=== PATIENT | female | born 1955 | race Caucasian/White ===

== ENCOUNTER 2020-12-25 10:57 | Outpatient (REF) | payer MEDICARE, SELFPAY ==
[2020-12-25 11:55] LABS: MANUAL DIFF FLAG NO
[2020-12-25 12:11] LABS: Basophils Absolute Auto 0.1 X10*3/uL (0.0-0.2); Basophils Percent Auto 0.8 % (0-2); Eosinophils Absolute Auto 0.2 X10*3/uL (0.0-0.4); Eosinophils Percent Auto 3.5 % (0-4); Hemoglobin 13.6 g/dl (12.0-16.0); Imm Gran Abs Auto 0.01 X10*3/uL (0.00-0.03); Imm Gran Pct Auto 0.2 % (0.0-0.4); Lymphocytes Absolute Auto 1.9 X10*3/uL (1.2-4.9); Lymphocytes Percent Auto 31.8 % (20-40); Mean Corpuscular HGB Conc 32.4 g/dl (31.0-35.0); Mean Corpuscular Hemoglobin 31.9 pg (27.0-33.0); Mean Corpuscular Volume 98.4 fL (80-98); Mean Platelet Volume 9.9 fL (9.4-12.3); Monocytes Absolute Auto 0.4 X10*3/uL (0.1-1.2); Monocytes Percent Auto 6.3 % (2-11); Neutrophils Absolute Auto 3.5 X10*3/uL (2.0-8.3); Neutrophils Percent Auto 57.4 % (45-73); Platelet Count 240 X10*3/uL (160-400); Red Blood Count 4.27 X10*6/uL (4.20-5.50); Red Cell Distribution Width 12.3 % (11.0-16.0); White Blood Count 6.1 X10*3/uL (4.8-10.8)
[2020-12-25 12:16] LABS: Alanine Aminotransferase 47 U/L (0-31); Albumin Level 4.1 g/dL (3.5-5.0); Alkaline Phosphatase 91 U/L (39-117); Anion Gap 11 (12-20); Aspartate Amino Transferase 42 U/L (5-31); Bilirubin Total 0.7 mg/dL (0.0-1.0); Blood Urea Nitrogen 17 mg/dL (9-16); Calcium 9.4 mg/dL (8.4-10.2); Carbon Dioxide 28 mmol/L (22-29); Chloride 107 mmol/L (96-108); Cholesterol 200 mg/dL; Estimated Glomerular Filt Rate 53; Glucose Random 102 mg/dL (60-115); HDL Cholesterol 50 mg/dL; LDL Cholesterol Calculated 126 mg/dl; Potassium 5.2 mmol/L (3.3-5.1); Sodium 141 mmol/L (135-145); Total Protein 7.3 g/dL (6.5-8.0); Triglycerides 123 mg/dL
[2020-12-25 12:37] LABS: Vitamin D 25-OH Total 40.7 ng/mL (>30)
== END 2020-12-25 10:58 | disposition home or self-care (01) ==
LOC: HO.LAB 10:57
PROVIDERS: PCP Internal Medicine; Visit Provider Internal Medicine
DX: Z00.00 Encounter for general adult medical examination without abnormal findings (principal); E55.9 Vitamin D deficiency, unspecified
CPT/HCPCS: 36415; 80053; 80061; 82306; 85025

== ENCOUNTER 2021-04-19 09:00 | Day surgery (SDC) | payer MEDICARE, SELFPAY ==
[2021-04-16 09:55] VITALS: BMI 35.9
--- NOTE | 2021-04-16 10:02 | HO.ANESPROP2 ---
Documented by User: Shayy Vo NP 04/16/21 10:03 HPI - Anesthesia Eval Consult details Narrative: 65yo F for Upper Endoscopy with balloon dilation and Colonoscopy PMFSH Past Medical History Medical History COVID Depression Fatty liver GERD (gastroesophageal reflux disease) Internal hemorrhoids Sigmoid diverticulosis Surgical History Surgical History History of total abdominal hysterectomy Hx of colonoscopy Hx of esophagogastroduodenoscopy Social History Social History (Updated 04/19/21 @ 11:37 by Cata Salazar MD) Patient Tobacco Use Status: Current everyday Tobacco user Tobacco use type: Cigarette Cigarettes Per Day: 10 Smoked in Last 30 Days: Yes Use of substances other than those prescribed or required for medical reasons: No Are you DNR?: No Advance Directives: No Advance Directives Information Provided: Yes Meds Allergies Allergy/AdvReac Type Severity Reaction Status Date / Time No Known Allergies Allergy Verified 04/16/21 09:55 Exam Exam Date and Time: April 16, 2021 1002 Height,Weight and Vital Signs: Height 5 ft 3.5 in Weight 93.44 kg Pertinent Lab Results Pertinent Lab Results: Laboratory Tests 12/25/20 12/25/20 11:15 11:15 WBC 6.1 Hgb 13.6 Hct 42.0 Plt Count 240 Sodium 141 Potassium 5.2 H Chloride 107 Carbon Dioxide 28 BUN 17 H Creatinine 1.03 Assessment and Plan Assessment Anesthesia Assessment: Chart Reviewed Documented by User: Cata Salazar MD 04/19/21 11:39 PMFSH Past Medical History Medical History COVID Depression Fatty liver GERD (gastroesophageal reflux disease) Internal hemorrhoids Sigmoid diverticulosis Family History Family history of problems with anesthesia: No Surgical History Surgical History History of total abdominal hysterectomy Hx of colonoscopy Hx of esophagogastroduodenoscopy History of Problems with Anesthesia: No Social History Social History (Updated 04/19/21 @ 11:37 by Cata Salazar MD) Patient Tobacco Use Status: Current everyday Tobacco user Tobacco use type: Cigarette Cigarettes Per Day: 10 Smoked in Last 30 Days: Yes Use of substances other than those prescribed or required for medical reasons: No Are you DNR?: No Advance Directives: No Advance Directives Information Provided: Yes Meds Allergies Allergy/AdvReac Type Severity Reaction Status Date / Time No Known Allergies Allergy Verified 04/16/21 09:55 Exam Height,Weight and Vital Signs: Height 5 ft 3.5 in Weight 93.44 kg Vital Signs Temp Pulse Resp BP Pulse Ox 04/19/21 10:22 97.4 F 42 L 16 128/63 97 Pertinent Lab Results Pertinent Lab Results: Laboratory Tests 12/25/20 12/25/20 11:15 11:15 WBC 6.1 Hgb 13.6 Hct 42.0 Plt Count 240 Sodium 141 Potassium 5.2 H Chloride 107 Carbon Dioxide 28 BUN 17 H Creatinine 1.03 Airway Mallampati Class: II TM Dist: >3cm Neck ROM: Full Denture: Upper Heart: RRR Lungs: CTAB Assessment and Plan Assessment Anesthesia Assessment: Anesthesia Plan Discussed Final Anesthetic Review Family History of Problems with Anesthesia: No History of Problems with Anesthesia: No NPO: Yes ASA Class: III Final Preanesthetic Review: No Changes in Pt Med Stat, Meds/Allgs Chart Reviewed, Consent Obtained/Reviewed and Anes Risks/Benef Reviewed Patient Risk: Intermediate Procedure Risk: Low Assessment/Block/Sedation in SS: Assess/Block/Sedation-SS Anesthetic Plan Anesthetic Plan: MAC: Disposition: Standard PACU
[2021-04-19 10:22] VITALS: BP 128/63; PULSE 42; RESP 16; TEMP 36.3; O2SAT 97
[2021-04-19] MEDS: Lactated Ringers 1,000 ML 100 ML IVCONT (10:43)
[2021-04-19 12:20] VITALS: BP 111/64; PULSE 71; RESP 16; TEMP 36.2; O2SAT 98
--- NOTE | 2021-04-19 12:27 | PM.OP ---
Brief Operative Note Date of Service: 04/19/21 Pre-op diagnosis: Dysphagia, Screening Post-op diagnosis: other (Hiatal hernia, Gastric polyps, Colopn polyps) Procedure: EGD with Balloon dilation and biopsies, Colonoscopy to the cecum and TI with biopsies Surgeon: Manjinder Rogers Anesthesia: MAC Was an Director Of [employer] used for this Procedure?: No Estimated blood loss (mL): 4.0 Pathology: other (A. EG Junction at 34cm B. Gastric polyps. C. Esophagus at 25cm D. Ascending colon polyp E. Polyp at 50cm) Condition: stable Disposition: PACU
[2021-04-19 12:35] VITALS: BP 133/64; PULSE 74; RESP 17; TEMP 36.2; O2SAT 96
--- NOTE | 2021-04-19 12:58 | OP_ITS ---
SURGEON: Manjinder Rogers MD INDICATIONS: The patient presents for evaluation of dysphagia, gastroesophageal reflux, colorectal cancer screening and personal history of tubular adenoma of the colon. Full consent has been obtained from her for this, including risks of bleeding and perforation. PREOPERATIVE DIAGNOSIS: POSTOPERATIVE DIAGNOSIS: PROCEDURE PERFORMED: Esophagogastroduodenoscopy with balloon dilation of gastroesophageal junction and biopsies, and colonoscopy to cecum and terminal ileum with biopsy and removal of polyps. ESTIMATED BLOOD LOSS: COMPLICATIONS: ANESTHESIA: Monitored anesthesia care. ASSISTANTS: SPECIMENS: PREOPERATIVE DIAGNOSES: Dysphagia and colorectal cancer screening. POSTOPERATIVE DIAGNOSES: Dysphagia and colorectal cancer screening, hiatal hernia, gastric polyps, rule out eosinophilic esophagitis, colon polyps, diverticulosis. DESCRIPTION OF PROCEDURE: The patient was placed in the left lateral decubitus position. The Olympus video gastroscope was passed in the posterior oropharynx and upper esophagus under direct vision. The scope was passed slowly into the distal esophagus. The gastroesophageal junction appeared at 34 cm. This area appeared slightly irregular consistent with chronic reflux, but there was no evidence of any definitive Nash's esophagus. There was no ulceration, stricture, nor mass. The scope easily entered into the stomach. There was a small to moderate-sized hiatal hernia. The scope was advanced to the pylorus. The duodenum was cannulated to the descending portion. The duodenum including the bulb appeared normal without mass or ulceration. The scope was withdrawn back into the stomach. The gastric antrum and body appeared normal with good peristalsis. Scope was retroflexed visualizing the proximal stomach carefully, which appeared normal, without mass or ulceration, other than some hyperplastic appearing gastric polyps. Two of these were biopsied. The scope was straightened out and withdrawn back into the esophagus. Given her symptomatology, I did use a [employer] incremental balloon to dilate the gastroesophageal junction from 18 mm to 19 mm to 20 mm at the recommended pressures for between 30 and 60 seconds each. Post dilation, there was really no appreciable change nor heme. I did obtain some biopsies at the EG junction. Again, there was no sign of any narrowing or ulceration. The scope was withdrawn through the remainder of the esophagus, which appeared normal. I did obtain biopsies at 25 cm. There was no evidence of any proximal esophageal rings nor webs. The scope was withdrawn from the patient. She was turned around for colonoscopy. The digital rectal exam revealed no abnormalities. The Olympus video pediatric colonoscope was entered into the rectum and advanced easily to the cecum. Once in the cecum, I did identify normal-appearing cecal pouch with appendiceal orifice and a normal-appearing ileocecal valve. The terminal ileum was cannulated and appeared normal. The scope was withdrawn back in the colon. The entire cecum and ileocecal valve appeared normal. The scope was slowly withdrawn assessing all mucosal surfaces carefully. Preparation was excellent. In the ascending colon and at 50 cm, were flat less than 5 mm polyps, which were each biopsied and completely removed with cold biopsy forceps. I did not visualize any other polyps, colitis, nor angiodysplasia. There was a mild amount of sigmoid diverticulosis. In the rectum, scope was retroflexed visualizing internal hemorrhoids, but no other pathology. The rectal mucosa appeared normal. The scope was straightened out and withdrawn from the patient. She tolerated the procedures well and was returned to the recovery area in stable condition. IMPRESSION: 1. Hiatal hernia, gastroesophageal reflux. 2. Status post balloon dilation of gastroesophageal junction. 3. Gastric polyps. 4. Rule out eosinophilic esophagitis. 5. Colon polyps. 6. Diverticulosis. 7. Internal hemorrhoids. PLAN: The results of the pathology will be checked. I would recommend a repeat colonoscopy in 5 years for further screening. She will continue omeprazole, but I shall increase that to b.i.d. for a month or two to see if that helps her with her swallowing. She will be seen in followup later this year. If there is evidence of Nash's esophagus without dysplasia, I would recommend a repeat upper endoscopy in 5 years at the time of her next colonoscopy. If her swallowing remains problematic, then we might need to proceed with further studies such as an esophageal motility study and/or barium swallow with a barium tablet. MD CARLOS Terry/VALERIA / [phone]
== END 2021-04-19 13:07 | disposition home or self-care (01) ==
PROVIDERS: PCP Internal Medicine; Visit Provider Internal Medicine
PROC: (CPT 45380; principal; 2021-04-19 10:40)
DX: Z12.11 Encounter for screening for malignant neoplasm of colon (principal); Z86.010 Personal history of colon polyps; D12.2 Benign neoplasm of ascending colon; D12.5 Benign neoplasm of sigmoid colon; K57.30 Diverticulosis of large intestine without perforation or abscess without bleeding; K64.8 Other hemorrhoids; R13.19 Other dysphagia; K22.70 Barrett's esophagus without dysplasia; K21.9 Gastro-esophageal reflux disease without esophagitis; K31.7 Polyp of stomach and duodenum; K44.9 Diaphragmatic hernia without obstruction or gangrene; K76.0 Fatty (change of) liver, not elsewhere classified; Z79.899 Other long term (current) drug therapy; Z86.16 Personal history of COVID-19; F17.210 Nicotine dependence, cigarettes, uncomplicated
CPT/HCPCS: 45380; 43249; 43239; 88305; 88342; C1726

== ENCOUNTER 2021-12-27 13:19 | Outpatient (REF) | payer MEDICARE, SELFPAY ==
--- NOTE | ~2021-12-27 | MM_ITS ---
EXAMINATION: MM SCREENING DIGITAL BREAST TOMOSYNTHESIS, BILATERAL CLINICAL INFORMATION: Screening. Asymptomatic. Benign right stereotactic biopsy 11/23/2018 (fibroadenoma with associated microcalcifications). The lifetime risk of breast cancer based on the Tyrer-Cuzick Model is 3%. COMPARISON: Mammography: 11/23/2018, 11/21/2018, 01/08/2018, 06/12/2017, 11/28/2013 TECHNIQUE: Digital breast tomosynthesis is performed in both the craniocaudal and mediolateral oblique views along with computer-aided detection (CAD). Synthesized 2D images are generated from the tomosynthesis. Additional bilateral MLO views are provided. FINDINGS: There are scattered areas of fibroglandular density (ACR BI-RADS breast composition Category b). Findings fibronodular parenchymal pattern is again seen similar to prior studies. There is stable parenchymal asymmetry mid upper outer right breast and stable nodule mid 12:00 left breast, now with 2 benign round calcifications. Biopsy clip marker again seen 12:00 right breast. No architectural abnormality or developing density. No abnormal calcifications. The axilla and skin contours are unremarkable. MM/MM tomosynthesis screening BI IMPRESSION: No significant changes from prior studies. ASSESSMENT: BI-RADS 2: Benign RECOMMENDATION: Routine annual mammography screening. This patient's information was entered into a reminder system with a target due date for their next mammogram.
== END 2021-12-27 13:20 | disposition home or self-care (01) ==
LOC: HO.MAMMO 13:19
PROVIDERS: PCP Internal Medicine; Visit Provider Internal Medicine
DX: Z12.31 Encounter for screening mammogram for malignant neoplasm of breast (principal)
CPT/HCPCS: 77063; 77067

== ENCOUNTER 2022-02-22 13:22 | Outpatient (RCR) | payer MEDICARE, SELFPAY | END 2022-03-16 16:23 | disposition home or self-care (01) | LOC: HO.WCC 13:22 | PROVIDERS: PCP Internal Medicine; Visit Provider Physician Assistant | DX: S61.412A Laceration without foreign body of left hand, initial encounter (principal); T81.30XA Disruption of wound, unspecified, initial encounter; I48.91 Unspecified atrial fibrillation; W54.0XXA Bitten by dog, initial encounter; Y93.9 Activity, unspecified; Y92.9 Unspecified place or not applicable; Y99.9 Unspecified external cause status; Z87.891 Personal history of nicotine dependence | CPT/HCPCS: 11042; 99212 ==

== ENCOUNTER 2022-08-08 14:02 | Outpatient (REF) | payer MEDICARE, SELFPAY | END 2022-08-08 14:03 | disposition home or self-care (01) | LOC: HO.XRAY 14:02 | PROVIDERS: PCP Internal Medicine; Visit Provider Internal Medicine | DX: M25.561 Pain in right knee (principal) | CPT/HCPCS: 73562 ==

== ENCOUNTER 2022-08-25 15:07 | Outpatient (REF) | payer MEDICARE, SELFPAY ==
--- NOTE | ~2022-08-25 | MR_ITS ---
EXAMINATION: MR KNEE WITHOUT CONTRAST, RIGHT CLINICAL INFORMATION: Right knee pain. Worsening pain with decreased range of motion. Antalgic gait. Pain and swelling. COMPARISON: Right knee radiographs dated 08/08/2022. TECHNIQUE: MRI of the knee without contrast was performed using routine sequences on a high-field scanner. FINDINGS: MENISCI: Medial Meniscus: Intact. Lateral Meniscus: Intact. LIGAMENTS: Cruciate: No acute ligament injury. Mild degenerative signal within the proximal aspect of the posterior cruciate ligament. Collateral: Intact EXTENSOR MECHANISM: Superior patellar enthesophytes. Intact quadriceps and patellar tendons. Normal patellofemoral alignment. ARTICULAR CARTILAGE/BONE: Patellofemoral Compartment: Articular cartilage thinning with near full thickness loss at the patellar median ridge. Central trochlea signal heterogeneity. Tiny marginal osteophytes. Medial Compartment: Weightbearing articular cartilage thinning and signal heterogeneity with tiny marginal osteophytes. Lateral Compartment: Intact articular cartilage. JOINT FLUID AND BURSAE: Small joint effusion. Posterior to the cruciate ligaments, there is a lobulated cyst measuring approximately 2.4 x 1.8 x 2.0 cm, consistent with a cruciate cyst. MR/MR knee RT wo con IMPRESSION: 1. No acute meniscal or ligamentous injury. 2. Mild degenerative signal within the proximal aspect of the posterior cruciate ligament. No acute ligament injury. Posterior cruciate cyst measuring up to 2.4 cm. 3. Mild patellofemoral and medial compartment osteoarthritis. Small joint effusion.
== END 2022-08-25 15:08 | disposition home or self-care (01) ==
LOC: HO.MRI 15:07
PROVIDERS: PCP Internal Medicine; Visit Provider Physician Assistant
DX: M25.561 Pain in right knee (principal)
CPT/HCPCS: 73721

== ENCOUNTER 2022-09-15 06:07 | Outpatient (REF) | payer MEDICARE, SELFPAY ==
--- NOTE | ~2022-09-15 | XR_ITS ---
EXAMINATION: XR KNEE AP STANDING CLINICAL INFORMATION: Pain COMPARISON: Knee radiograph 08/08/2022 TECHNIQUE: AP bilateral standing view of the knees was obtained. FINDINGS: No acute fracture or dislocation. Borderline loss of bilateral medial compartment joint space. Soft tissues are unremarkable. XR/XR knee standing BI IMPRESSION: Borderline loss of bilateral medial compartment joint space which may reflect mild osteoarthritis.
== END 2022-09-15 06:08 | disposition home or self-care (01) ==
LOC: HO.HOSX 06:07
PROVIDERS: Visit Provider Physician Assistant
DX: M17.11 Unilateral primary osteoarthritis, right knee (principal)
CPT/HCPCS: 20610; 73565; 99202; J1040

== ENCOUNTER 2023-04-18 14:43 | Outpatient (REF) | payer MEDICARE, SELFPAY ==
--- NOTE | ~2023-04-18 | XR_ITS ---
EXAMINATION: XR RIBS, BILATERAL CLINICAL INFORMATION: Pleurodynia. COMPARISON: Chest radiograph 03/29/2016. TECHNIQUE: 3 views of the bilateral ribs were obtained. FINDINGS: Focal somewhat patchy and streaky airspace opacities in the retrocardiac region with increased diffuse interstitial thickening. No pleural effusion or pneumothorax. No displaced osseous fractures. Chronic asymmetric widening of the left acromioclavicular clavicular joint. XR/XR ribs BI 3V IMPRESSION: Findings are suggestive of atypical/viral infection versus reactive airways disease with early infiltrates in the retrocardiac region. A follow-up examination after treatment is recommended to ensure appropriate resolution. The report will be called to the ordering clinician by a [facility] Phys[facility] Office Machine [employer] Supervisor.
== END 2023-04-18 14:44 | disposition home or self-care (01) ==
LOC: HO.XRAY 14:43
PROVIDERS: PCP Internal Medicine; Visit Provider Physician Assistant
DX: R07.81 Pleurodynia (principal)
CPT/HCPCS: 71110

== ENCOUNTER 2023-05-04 08:12 | Outpatient (REF) | payer MEDICARE, SELFPAY ==
--- NOTE | ~2023-05-04 | MM_ITS ---
EXAMINATION: BONE DENSITOMETRY CLINICAL INDICATION: Osteopenia. COMPARISON: Previous BD dated 11/28/2013 and baseline BD dated 09/11/2006. TECHNIQUE: Using a [employer] DXA System (software version: 13.1) manufactured by [employer], dual-energy x-ray absorptiometry was performed of the lumbar spine and left hip. The images are of good technical quality. Summary results are attached. FINDINGS: LEFT FEMUR, NECK: Current: BMD 0.881 g/cm2, Z-score -0.1, T-score -1.1, osteopenia. Prior: BMD 0.931 g/cm2. Baseline: BMD 0.989 g/cm2. LEFT FEMUR, TOTAL: Current: BMD 0.985 g/cm2, Z-score 0.6, T-score -0.2, normal, 4.6% decrease from previous, 7.9% decrease from baseline (<5% change is not significant). Prior: BMD 1.033 g/cm2. Baseline: BMD 1.070 g/cm2. AP SPINE L1-L4: Current: BMD 1.134 g/cm2, Z-score 0.3, T-score -0.4, normal, 3.1% decrease from previous, 1.1% decrease from baseline (<5% change is not significant). Prior: BMD 1.170 g/cm2. Baseline: BMD 1.147 g/cm2. IDENTIFIED RISK FACTORS: Early menopause, bilateral oophorectomy, height loss, hysterectomy, low calcium intake, recurrent falls, secondary osteoporosis. HISTORY OF FRACTURE: None listed. MEDICATIONS: None listed. MM/XR DEXA axial skeleton IMPRESSION: 1. DIAGNOSIS: Osteopenia based on the lowest T-score value of -1.1 in the femoral neck applying World Health Organization criteria. 2. 10-YEAR FRACTURE RISK PREDICTION, FRAX: Major osteoporotic fracture (clinical spine, forearm, hip or shoulder) 8.2%. Hip fracture 0.8%. 3. Treatment Recommendations: NOF guidelines recommend consideration for treatment in postmenopausal women and men age 50 and older presenting with the following: -A hip or vertebral (clinical or morphometric) fracture. -T-score less than or equal to -2.5 at the femoral neck or spine after appropriate evaluation to exclude secondary causes. -Low bone mass at the hip or spine and a 10-year fracture probability by FRAX of greater than or equal to 3% for hip fracture or greater than or equal to 20% for major osteoporotic fracture based on the [place] adapted WHO algorithm. 4. Other Recommendations: All treatment decisions require clinical judgment and consideration of individual patient factors, including patient preferences, comorbidities, previous drug use, risk factors not captured in the FRAX model (e.g. frailty, falls, vitamin D deficiency, increased bone turnover, interval significant decline in bone density) and possible under or overestimation of fracture risk by FRAX. Additional medical evaluation for secondary cause of low bone mineral density may be appropriate. FUTURE SCAN RECOMMENDATION: People with diagnosed cases of osteoporosis or at high risk for fracture should have regular bone mineral density tests. For patients eligible for Medicare, routine testing is allowed once every 2 years. The testing frequency can be increased to one year for patients who have rapidly progressing disease, those who are receiving or discontinuing medical therapy to restore bone mass, or have additional risk factors.
--- NOTE | ~2023-05-04 | MM_ITS ---
EXAMINATION: MM SCREENING DIGITAL BREAST TOMOSYNTHESIS, BILATERAL CLINICAL INFORMATION: Screening. Asymptomatic. COMPARISON: Mammography: This study is compared with prior exams dating back to 2017. TECHNIQUE: Digital breast tomosynthesis is performed in both the craniocaudal and mediolateral oblique views along with computer-aided detection (CAD). Synthesized 2D images are generated from the tomosynthesis. FINDINGS: There are scattered areas of fibroglandular density (ACR BI-RADS breast composition Category b). There are no significant masses, abnormal calcifications, or other abnormalities. In the right breast from prior benign percutaneous biopsy. There is an oval, benign mass associated with coarse benign calcification superior aspect of the left breast. MM/MM tomosynthesis screening BI IMPRESSION: No mammographic evidence of malignancy. ASSESSMENT: BI-RADS BI-RADS 2 - Benign Findings RECOMMENDATION: Routine annual mammography screening. 1 year F/U This examination should not preclude the clinical evaluation of a suspicious palpable abnormality. This patient's information was entered into a reminder system with a target due date for their next mammogram.
--- NOTE | ~2023-05-04 | XR_ITS ---
EXAMINATION: XR CHEST 2 VIEWS CLINICAL INFORMATION: Viral upper respiratory tract infection. COMPARISON: Chest radiograph dated 04/18/2023. TECHNIQUE: Frontal and lateral views of the chest were obtained. FINDINGS: The heart, great vessels, pulmonary vasculature and mediastinum are normal. The lungs show no focal infiltrate, effusion or pneumothorax. There is stable mild elevation of the right hemidiaphragm. There is no acute osseous abnormality. There is chronic widening of the left acromioclavicular joint. XR/XR chest 2V IMPRESSION: No active cardiopulmonary disease.
== END 2023-05-04 08:13 | disposition home or self-care (01) ==
LOC: HO.MAMMO 08:12
PROVIDERS: Absent Provider Physician Assistant; PCP Internal Medicine; Visit Provider Internal Medicine
DX: Z12.31 Encounter for screening mammogram for malignant neoplasm of breast (principal); Z13.820 Encounter for screening for osteoporosis; Z78.0 Asymptomatic menopausal state; J06.9 Acute upper respiratory infection, unspecified; M85.88 Other specified disorders of bone density and structure, other site
CPT/HCPCS: 71046; 77063; 77067; 77080

== ENCOUNTER → 2023-05-04 09:00 | Outpatient (BNV) | payer MEDICARE, SELFPAY | PROVIDERS: Absent Provider Physician Assistant; PCP Internal Medicine; Visit Provider Radiology Diagnostic Radiology | DX: Z12.31 Encounter for screening mammogram for malignant neoplasm of breast (principal) | CPT/HCPCS: 77063; 77067; 77080 ==

== ENCOUNTER 2023-07-26 09:18 | Outpatient (REF) | payer MEDICARE, SELFPAY ==
[2023-07-26 10:36] LABS: Anion Gap 11 (12-20); Blood Urea Nitrogen 16 mg/dL (9-16); Carbon Dioxide 26 mmol/L (22-29); Chloride 108 mmol/L (96-108); Estimated Glomerular Filt Rate 60; Glucose Random 100 mg/dL (60-115); Potassium 4.4 mmol/L (3.3-5.1); Sodium 141 mmol/L (135-145)
[2023-07-26 10:58] LABS: Thyroid Stimulating Hormone 2.23 uIU/mL (0.32-4.0)
[2023-07-26 11:01] LABS: Folate 6.1 ng/mL (> or = 4.0); Vitamin B12 429 pg/mL (200-900)
[2023-07-26 12:20] LABS: T4 Thyroxine 7.4 ug/dL (4.5-12.0)
== END 2023-07-26 09:19 | disposition home or self-care (01) ==
LOC: HO.LAB 09:18
PROVIDERS: PCP Internal Medicine; Visit Provider Psychiatry & Neurology Neurology
DX: G31.84 Mild cognitive impairment of uncertain or unknown etiology (principal)
CPT/HCPCS: 36415; 80048; 82607; 82746; 84436; 84443

== ENCOUNTER 2023-08-30 08:21 | Outpatient (REF) | payer MEDICARE, SELFPAY ==
--- NOTE | ~2023-08-30 | CT_ITS ---
EXAMINATION: CT HEAD WITHOUT CONTRAST CLINICAL INFORMATION: Mild cognitive impairment. COMPARISON: MRI scan of the brain 01/30/2020. TECHNIQUE: Multidetector CT imaging of the head was obtained without the use of intravenous contrast. Coronal and sagittal reformatted images were generated at the technologist workstation. This CT examination was performed using dose optimization techniques as appropriate, variously including the following: *Automated exposure control *Adjustment of mA and/or kV according to patient size (this includes techniques or standardized protocols for targeted exams where dose is matched to indication/reason for exam; i.e. extremities or head) *Use of iterative reconstruction technique DLP: 755 mGy-cm. FINDINGS: There is no evidence of acute intracranial hemorrhage or territorial infarction. No abnormal mass-effect or midline shift is seen. Styles to white matter differentiation is well preserved. No extra-axial fluid collections are identified. There is mild commensurate prominence of the ventricles and sulci. The ventricles and sulci are normal in size. There are a few small foci of low-attenuation in the periventricular and subcortical white matter, most consistent with mild chronic microvascular ischemic changes. There are no acute osseous findings. The patient is edentulous in the mandible and the maxilla. There are no acute soft tissue abnormalities. The nasal septum is deviated to the left is a prominent left-sided bony nasal septal spur. The mastoid air cells are well-aerated. There is a tiny retention cyst posteriorly in the right maxillary sinus. CT/CT head/brain wo IV con IMPRESSION: 1. There are no acute bleeds or territorial infarcts. No masses are demonstrated. 2. There are mild chronic microvascular ischemic changes and there is diffuse volume loss.
== END 2023-08-30 08:22 | disposition home or self-care (01) ==
LOC: HO.CT 08:21
PROVIDERS: PCP Internal Medicine; Visit Provider Psychiatry & Neurology Neurology
DX: G31.84 Mild cognitive impairment of uncertain or unknown etiology (principal)
CPT/HCPCS: 70450

== ENCOUNTER 2023-09-08 11:32 | Outpatient (REF) | payer MEDICARE, SELFPAY ==
[2023-09-08 14:05] LABS: Estimated Average Glucose 108 mg/dL; Hemoglobin A1c % 5.4 % (<6.0)
[2023-09-08 14:45] LABS: Alanine Aminotransferase 43 U/L (0-31); Albumin Level 3.9 g/dL (3.5-5.0); Alkaline Phosphatase 87 U/L (39-117); Anion Gap 12 (12-20); Aspartate Amino Transferase 39 U/L (5-31); Bilirubin Total 0.3 mg/dL (0.0-1.0); Blood Urea Nitrogen 18 mg/dL (9-16); Calcium 9.2 mg/dL (8.4-10.2); Carbon Dioxide 27 mmol/L (22-29); Chloride 108 mmol/L (96-108); Estimated Glomerular Filt Rate > 60; Glucose Random 97 mg/dL (60-115); Potassium 4.5 mmol/L (3.3-5.1); Sodium 142 mmol/L (135-145); Total Protein 7.3 g/dL (6.5-8.0)
== END 2023-09-08 11:33 | disposition home or self-care (01) ==
LOC: HO.MANLDS 11:32
PROVIDERS: Visit Provider Internal Medicine
DX: R73.9 Hyperglycemia, unspecified (principal)
CPT/HCPCS: 36415; 80053; 83036

== ENCOUNTER 2024-07-30 10:43 | Outpatient (REF) | payer MEDICARE, SELFPAY | END 2024-07-30 10:44 | disposition home or self-care (01) | LOC: HO.XRAY 10:43 | PROVIDERS: PCP Internal Medicine; Visit Provider Internal Medicine | DX: M54.50 Low back pain, unspecified (principal) | CPT/HCPCS: 72100 ==

== ENCOUNTER 2024-09-11 17:47 | Outpatient (REF) | payer MEDICARE, SELFPAY ==
--- NOTE | ~2024-09-11 | MR_ITS ---
CLINICAL HISTORY: weakness lower limb MR lumbar spine without gadolinium Comparison: None Findings: Conus terminates at L1. Unremarkable appearance of the visualized cord and conus medullaris. Normal alignment without acute fracture or marrow infiltration. Multilevel disc dehydration. [id number]-[id number] edematous changes with in the posterior subcutaneous fat at the lumbar level. Finding may be incidental or secondary to nonspecific edema. Bilateral renal T2 hyperintense lesions/cysts measuring up to 23 mm could be further characterized with ultrasound. Mild disc bulges at several levels without evidence of significant central canal or lateral recess stenosis. Left ligamentum flavum hypertrophy at T10/T11 noted on the sagittal view. Jrdy-it-[id number] right-sided L5/S1 degenerative neural foraminal narrowing. L4/L5: Mild right-sided degenerative foraminal narrowing. L3/L4: Zjgj-ff-oircqtjh bilateral degenerative neural foraminal narrowing. L2/L3: Mild right-sided degenerative neural foraminal. Small neural foraminal, perineural cysts at a few of the lower thoracic levels. IMPRESSION: No evidence of significant central canal or neural foraminal stenosis. Pjqg-up-kganadcy degenerative neural foraminal stenosis noted at some lumbar levels. Bilateral renal T2 hyperintense lesions/cysts measuring up to 23 mm could be further characterized with ultrasound. This document has been electronically signed by: Jennie Seymour MD on 09/12/2024 12:40:57
== END 2024-09-11 17:48 | disposition home or self-care (01) ==
LOC: HO.MRI 17:47
PROVIDERS: PCP Internal Medicine; Visit Provider Internal Medicine
DX: M62.81 Muscle weakness (generalized) (principal)
CPT/HCPCS: 72148

== ENCOUNTER → 2024-09-11 18:01 | Outpatient (BNV) | payer MEDICARE, SELFPAY | PROVIDERS: PCP Internal Medicine; Visit Provider Radiology Diagnostic Radiology | DX: R53.1 Weakness (principal) | CPT/HCPCS: 72148 ==

== ENCOUNTER 2025-02-14 12:22 | Outpatient (REF) | payer MEDICARE, SELFPAY ==
--- NOTE | ~2025-02-14 | US_ITS ---
CLINICAL HISTORY: BILATERAL RENAL CYSTS Renal ultrasound Comparison: None available Findings: The kidneys are normal in echotexture bilaterally. No hydronephrosis. The right kidney is normal in size, measuring 11.7cm in length. Right renal cysts in the lower pole with thin internal septations measuring 1.4 x 1.3 x 1.6 cm and 1.4 x 1.0 x 1.3 cm. The left kidney is normal in size, measuring 11.7cm in length. Left renal cyst in the lower pole with thin internal septation and peripheral calcification measuring 1.8 x 2.1 x 1.8 cm. Impression: No acute findings. Right renal cysts with thin internal septations measuring up to 1.6 cm. Left renal cysts with thin internal septation and peripheral calcification measuring 2.1 cm. Follow up is recommended. This document has been electronically signed by: Alvina Carmen MD on 02/15/2025 20:04:32
--- OUTSIDE RECORDS SUMMARY | 2025-02-14 13:10 | XMS_ITS | Patient Health Record ---
Author Organization [facility] Address [address] [place] [address] Care Team Providers Care Coating Manager Name Role Phone Rio Carroll Primary Care Provider Manjinder Soto [phone] Allergies Allergen (clinical drug ingredient) Drug/Non Drug Allergy documented on EMR Reaction Allergy Type Onset Date Status prednisone Prednisone mental reaction Drug Allergy Active Reason For Referral No Information Medications Medication SIG (Take, Route, Frequency, Duration) Notes Start Date End Date Status Omeprazole 20 MG 1 capsule Orally Onc e a day Active Escitalopram Oxalate 20 MG 1 tablet Oral ly Once a day Active Immune Enhance Activ e Multivitamin Active Probiotic Advanced A ctive Immunizations Vaccine Route Administration Date Status Comme nts Influenza Unknown 04/08/2021 Refused Social History Tobacco Use: Social History Observation Description Date Details (start date - stop date) Current Smoker NA - NA Tobacco Use/Smoking Question Answer Notes Patient is a current smoker How often do you smoke cigarettes? every day How many cigarettes a day do you smoke? 6-10 Alcohol Screen Question Answer Notes Did you have a drink contain ing alcohol in the past year? Yes How often did you have a dri nk containing alcohol in the past year? Monthly or less (1 point) How many drinks did you have on a typical day when you were drinking in the past year? 1 or 2 drinks (0 point) How often did you have 6 or more drinks on one occasion in the past year? Never (0 point) Points 1 Interpretation Negative Section Notes: Smoker; no sig alcohol--alco hol abuse from age [age]. 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 confirmed Problem Gastroesophageal reflux disease (K21.9) Active confirmed Problem 472959557 Gastroesophageal reflux disease without esophagitis (K21.9) Active confirmed Problem 111117822 Gastroesophageal reflux disease, unspecified whether esophagitis present (K21.9) Active confirmed Problem 30049841 Esophageal dysph agia (R13.19) Active confirmed Plan Of Treatment Pending Test Test Name Order Date MRI ABD W&WO CONTRAST 05/04/2014 Future Test Test Name Order Date COLONOSCOPY 04/23/2014 UPPER GI ENDOSCOPY BALLOOON DILATION OF ESOPH 04/08/2021 COLONOSCOPY 04/08/2021 Insurance Providers Payer Name Payer Address Payer Phone Subscriber Number Group Number Insured Name Patient Relationship to Insured Coverage Start Date Coverage End Date MEDICARE OF [place] [address] [place] [address] [id number] TIMOTHY SUAREZ Self - patient is the insured MED[employer] ATT[employer] CLAIMS [address] [place] [address] [phone] [id number] TIMOTHY SUAREZ Self - patient is the insured Medical (General) History Medical History History ICD Code 02/2003- Screening colonoscop y with removal of a 1.5cm tubular adenoma from the sigmoid colon--F/U colonoscopies in 2004 and 02/2009 negative Internal hemorrhoids Sigmoid diverticulosis GERD--EGD in 02/2003-HH-no sig. esophagit is nor Nash's Depression Denies IA,DM,CVA,Lung disease,renal dise ase Hx of fatty liver and elevated LFT's COVID positive 07/2020 Negative follow up screening colonoscopy in 2013 Nash's esophagus--upper e ndoscopy in March of 2021 revealed her known hiatal hernia and a small area of Nash's esophagus, with biopsies negative for dysplasia--- there was no significant esophagitis; there were some benign gastric polyps with biopsies negative for H. pylori as well Colonoscopy in March revealed 2 small tubular adenomas that were removed Dysphagia--upper endoscopy i n March of 2021 was negative for any esophageal stricture but she did respond well to a balloon dilation of the gastroesophageal junction up to 20 mm Surgical History Surgery Date(Month/Year) GONZALES
== END 2025-02-14 12:23 | disposition home or self-care (01) ==
LOC: HO.US 12:22
PROVIDERS: PCP Internal Medicine; Visit Provider Internal Medicine
DX: N28.1 Cyst of kidney, acquired (principal)
CPT/HCPCS: 76775

== ENCOUNTER → 2025-02-14 12:25 | Outpatient (BNV) | payer MEDICARE, SELFPAY | PROVIDERS: PCP Internal Medicine; Visit Provider Radiology Diagnostic Radiology | DX: N20.0 Calculus of kidney (principal) | CPT/HCPCS: 76775 ==

== ENCOUNTER 2025-04-09 08:11 | Outpatient (REF) | payer MEDICARE, SELFPAY ==
--- OUTSIDE RECORDS SUMMARY | 2025-04-09 08:37 | XMS_ITS | Clinical Summary ---
Author Organization [facility] it Address [address] [place] [address] Care Team Providers Care Airways Control Specialist Name Role Phone Unavailable Primary Care Provider Unavailabl e Social History Tobacco Use Types Packs/Day Years Used Date Smoking Tobacco: Never Assessed Comments Unknown Sex and Gender Information Value Date Recorded Sex Assigned at Not on file Legal Sex Female 2:20 PM EST Gender Identity Not on file Sexual Orientation Not on file Plan of Treatment Health Maintenance Due Date Last Done Comments Breast Cancer Screening 1955 DTaP,Tdap,and Td Vaccines (1 - Tdap) 1972 Pneumococcal Vaccine: 50+ Ye ars (1 of 1 - PCV) 11/09/2003 Zoster Vaccines (1 of 2) 11/09/2003 COVID-19 Vaccine ( - 2023-2 5 season) 2024 Depression Screening 08/21/2024 Influenza Vaccine (#1) 2025 RSV Immunization Adult Patie nts (1 - 1-dose 75+ series) 2028 HIB Vaccines Aged Out No longer eligi ble based on patient's age to complete this topic HPV Vaccines Aged Out No longer eligi ble based on patient's age to complete this topic Hepatitis A Vaccines Aged Out No long er eligible based on patient's age to complete this topic Hepatitis B Vaccines Aged Out No long er eligible based on patient's age to complete this topic IPV Vaccines Aged Out No longer eligi ble based on patient's age to complete this topic MMR Vaccines Aged Out No longer eligi ble based on patient's age to complete this topic Meningococcal ACWY Vaccine Aged Out N o longer eligible based on patient's age to complete this topic Meningococcal B Vaccine Aged Out No l onger eligible based on patient's age to complete this topic RSV Immunization Patients Un jon 20 months Aged Out No longer eligible b ased on patient's age to complete this topic Varicella Vaccines Aged Out No longer eligible based on patient's age to complete this topic
--- OUTSIDE RECORDS SUMMARY | 2025-04-09 08:37 | XMS_ITS | Patient Health Record ---
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) Active confirmed Problem Gastroesophageal reflux disease (K21.9) Active confirmed Problem 356008773 Gastroesophageal reflux disease without esophagitis (K21.9) Active confirmed Problem 024323225 Gastroesophageal reflux disease, unspecified whether esophagitis present (K21.9) Active confirmed Problem 49656413 Esophageal dysph agia (R13.19) Active confirmed Plan [...] Date MEDICARE OF [place] [address] [place] [address] [id number] TIMOTHY SUAREZ Self - patient is the insured MED[employer] ATTN CLAIMS [address] [place] [phone] [id number] TIMOTHY SUAREZ Self - patient is the insured Medical (General) History Medical History History ICD Code 02/2003- Screening colonoscop y with removal of a 1.5cm tubular adenoma from the sigmoid colon--F/U colonoscopies in 2004 and 02/2009 negative Internal hemorrhoids Sigmoid diverticulosis GERD--EGD in 02/2003-HH-no sig. esophagit is nor Nash's Depression Denies MS,DM,CVA,Lung disease,renal dise ase Hx of fatty liver [...]
[2025-04-09 09:21] LABS: Alanine Aminotransferase 75 U/L (0-31); Albumin Level 4.3 g/dL (3.5-5.0); Alkaline Phosphatase 97 U/L (39-117); Anion Gap 12 (12-20); Aspartate Amino Transferase 77 U/L (5-31); Blood Urea Nitrogen 17 mg/dL (9-16); Calcium 9.4 mg/dL (8.4-10.2); Carbon Dioxide 26 mmol/L (22-29); Chloride 107 mmol/L (96-108); Cholesterol 177 mg/dL (<200); Estimated Glomerular Filt Rate 53; HDL Cholesterol 45 mg/dL (>40); Iron 122 mcg/dL (30-160); Percent Iron Saturation 42 % (15-50); Potassium 4.4 mmol/L (3.3-5.1); Sodium 141 mmol/L (135-145); Total Iron Binding Capacity 288 mcg/dL (228-428); Total Protein 7.4 g/dL (6.5-8.0); Triglycerides 110 mg/dL (<150); Unsaturated Iron Binding 166 ug/dL
[2025-04-09 09:27] LABS: Hemoglobin A1C 135.2683 umol/L; Total Hemoglobin (HGBA1C) 3552.9537 umol/L
[2025-04-09 09:40] LABS: Ferritin 294 ng/mL (10-250); Free T4 (Free Thyroxine) 0.93 ng/dL (0.71-1.85); Thyroid Stimulating Hormone 3.36 uIU/mL (0.32-4.0)
[2025-04-09 09:46] LABS: Folate 8.9 ng/mL (> or = 4.0); Vitamin B12 521 pg/mL (200-900)
== END 2025-04-09 08:12 | disposition home or self-care (01) ==
LOC: HO.LAB 08:11
PROVIDERS: PCP Internal Medicine; Visit Provider Internal Medicine
DX: Z13.6 Encounter for screening for cardiovascular disorders (principal); R53.82 Chronic fatigue, unspecified; R73.9 Hyperglycemia, unspecified
CPT/HCPCS: 36415; 80053; 80061; 82306; 82607; 82728; 82746; 83036; 83540; 84439; 84443

== ENCOUNTER → 2025-06-16 07:49 | Outpatient (BNV) | payer MEDICARE, SELFPAY | PROVIDERS: PCP Internal Medicine; Visit Provider Radiology Diagnostic Radiology | DX: R41.3 Other amnesia (principal) | CPT/HCPCS: 70551 ==

== ENCOUNTER 2025-06-16 07:59 | Outpatient (REF) | payer MEDICARE, SELFPAY ==
--- NOTE | ~2025-06-16 | MR_ITS ---
EXAMINATION: MR BRAIN WITHOUT IV CONTRAST HISTORY: AMNESIA TECHNIQUE: Sagittal T1 and FLAIR, coronal FLAIR, and axial T1, FLAIR, T2, gradient echo, and diffusion weighted MR images of the brain were obtained. COMPARISON: Comparison is made with the prior examination dated 10/01/2019. FINDINGS: The pituitary is normal in size. The cerebellar tonsils are normally located. There are scattered periventricular and subcortical white matter hyperintensities on the FLAIR and T2-weighted images which are nonspecific, but often seen in the setting of small vessel ischemic disease. These are not significantly changed from the prior study. There is no mass effect or midline shift. The ventricular system is normal in size and configuration. The hippocampal formations are symmetric and unremarkable in appearance. No intra or extra-axial fluid collections are identified. There are no foci of restricted diffusion. Normal vascular flow voids are noted in the basilar and carotid arteries. The visualized paranasal sinuses are clear. MR/MR head/brain wo con IMPRESSION: No acute intracranial abnormality. Electronically signed by: Manjinder Dempsey MD 06/16/2025 08:58 AM EDT
--- OUTSIDE RECORDS SUMMARY | 2025-06-16 08:02 | XMS_ITS | Clinical Summary ---
Author Organization [facility] Address [address] [id number] Phone Care Team Providers Care Personnel Analyst Name Role Phone Unavailable Primary Care Provider Unavailabl e Social History Tobacco Use Types Packs/Day Years Used Date Smoking Tobacco: Never Assessed Comments Unknown Sex and Gender Information Value Date Recorded Sex Assigned at Not on file Legal Sex Female 8:07 AM EDT Gender Identity Not on file Sexual Orientation Not on file Plan of Treatment Not on file Medical Devices Not on file Additional Source Comments The information contained in this document represents components of the legal health record. It is not the complete legal health record.[facility]
--- OUTSIDE RECORDS SUMMARY | 2025-06-16 08:02 | XMS_ITS | Clinical Summary ---
Author Organization [facility] it Address [address] [place] [address] Care Team Providers Care Circular Sawyer Stone Name Role Phone Unavailable Primary Care Provider [...] 11/09/2003 Zoster Vaccines (1 of 2) 11/09/2003 Depression Screening 08/21/2024 COVID-19 Vaccine (1 - 2023-2 5 season) 2025 Influenza Vaccine (#1) 2025 RSV Immunization Adult [...]
--- OUTSIDE RECORDS SUMMARY | 2025-06-16 08:02 | XMS_ITS | Encounter Summary ---
Author Organization [facility] Address [address] [place] [address] Phone Care Team Providers Care Program Associate Name Role Phone Unavailable Primary Care Provider Unavailabl e Encounter Details Date Type Department Care Team (Late st Contact Info) Description 12/11/2024 Transcribe Orders Virtual Department [address] [place] [address] Rio Carroll, DO [address] [place] [address] [place] [address] [email or web address] Bilateral renal cysts (Primary Dx) Social History Tobacco Use Types Packs/Day Years Used Date Smoking Tobacco: Never Assessed Comments Unknown Sex and Gender Information Value Date Recorded Sex Assigned at Not on file Legal Sex Female 8:07 AM EDT Gender Identity Not on file Sexual Orientation Not on file documented as of this encounter Plan of Treatment Not on file documented as of this encounter Visit Diagnoses Diagnosis Bilateral renal cysts- Primary 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 It is not the complete legal health record.[facility]
--- OUTSIDE RECORDS SUMMARY | 2025-06-16 08:02 | XMS_ITS | Patient Health Record ---
Author Organization [facility] Address [address] [place] [address] Care Team Providers Care Professor Of Industrial Technology Name Role Phone Rio Carroll Primary Care Provider Manjinder Soto [phone] Allergies Allergen (clinical drug ingredient) Drug/Non Drug [...] Problem Status W/U Status Risk Notes Problem Screening for malignant neoplasm of colon (434184241) Encounter for screening for malignant neoplasm of colon (Z12.11) Active confirmed Problem History of adenomatous polyp of colon (392109608) History of adenomatous polyp of colon (Z86.010) Active confirmed Problem Nash's esophagus (069857273) 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) Active confirmed Problem Gastroesophageal reflux disease (935560111) Gastroesophageal reflux disease (K21.9) Active confirmed Problem Gastroesophageal reflux disease without esophagitis (540180996) Gastroesophageal reflux disease without esophagitis (K21.9) Active confirmed Problem Gastroesophageal reflux disease (271918120) Gastroesophageal reflux disease, unspecified whether esophagitis present (K21.9) Active confirmed Problem Esophageal dysphagia (57217548) Esophageal dysphagia (R13.19) Active confirmed Plan Of Treatment Pending [...] Date MEDICARE OF [place] [address] [place] [address] [phone] [id number] TIMOTHY SUAREZ Self - patient is the insured MED[employer] ATTN CLAIMS [address] [place] [address] [id number] TIMOTHY SUAREZ Self - patient is the [...]
--- OUTSIDE RECORDS SUMMARY | 2025-06-16 08:02 | XMS_ITS | Data Portability ---
Author Organization [facility], Telehealth Patient Home Address [address] [place] [address] Assessment Encounter Date Assessment Date Assessment LastModified by Organization Details LastModified Time 10/09/2024 10/09/2024 Patient agreed and verbally consents to this audio and video Telehealth appt via a secure platform [email or web address] Not available 10/09/2024 11:41:44 11/04/2024 11/04/2024 [id number] [place] [id number] (WHEEL BORER) : MDM LOW MUST MEET 2 OF 3 ELEMENTS: PROBLEMS, DATA OR RISK ELEMENT 1: PROBLEMS ADDRESSED (LOW): 2 OR MORE SELF-LIMITED OR MINOR PROBLEMS OR 1 STABLE CHRONIC ILLNESS OR 1 ACUTE UNCOMPLICATED ILLNESS OR INJURY ELEMENT 2: DATA TO BE REVISED AND ANALYZED (LOW) MUST MEET 1 OF 2 CATEGORIES: CATEGORY 1. REVIEW OF PRIOR EXTERNAL NOTES/RESULTS, ORDERING OF TEST(S) CATEGORY 2. ASSESSMENT REQUIRING INDEPENDENT HISTORIAN(S) INCLUDE WHO THE HISTORIAN IS AND RELATION TO PT AND WHY PT IS UNABLE TO GIVE COMPLETE HISTORY ELEMENT 3: RISK (LOW) RISK OF COMPLICATIONS AND/OR MORBIDITY OR MORTALITY OF PATIENT MANAGEMENT PROVIDER MUST THOROUGHLY DOCUMENT ALL OF THE ELEMENTS COVERED Not available 11/04/2024 13:38:51 04/01/2025 04/01/2025 [id number] [place] [id number] (WHEEL BORER) MDM MODERATE MUST MEET 2 OUT OF 3 ELEMENTS: PROBLEMS, DATA OR RISK ELEMENT 1: PROBLEMS ADDRESSED 1 OR MORE CHRONIC ILLNESS WITH EXACERBATION OR 2 OR MORE STABLE CHRONIC ILLNESSES OR 1 UNDIAGNOSED NEW PROBLEM OR 1 ACUTE ILLNESS W/SYMPTOMS OR 1 ACUTE COMPLICATED INJURY ELEMENT 2: DATA MUST MEET 1 OF 3 CATEGORIES CATEGORY 1: REVIEW OF PRIOR EXTERNAL NOTES, REVIEW OF RESULTS, ORDERING OF EACH TEST, ASSESSMENT REQUIRING INDEPENDENT HISTORIAN OR CATEGORY 2: INDEPENDENT INTERPRETATION OF TESTS BY ANOTHER PHYSICIAN OR SPECIALIST OR CATEGORY 3: DISCUSSION OF MGT OR TEST INTERPRETATION W/EXTERNAL PHYSICIAN OR SPECIALIST ELEMENT 3: RISK RISK OF COMPLICATIONS AND/OR MORBIDITY OR MORTALITY OF PATIENT MANAGEMENT PROVIDER MUST THOROUGHLY DOCUMENT EACH ELEMENT THAT IS COVERED Not available 04/01/2025 12:26:32 Plan of Treatment Reminders Order Date Submit Date Provider Last Modified By Organization Details Last Modified Time Details Appointments MEDICARE ANNUAL WELLNESS 2025 11:00A M DR ELENA Not available Not available Not available Lab hemoglobi n A1c, QN, blood 2024 025 [facility], [address] [place] [address], [address], 04/10/2025 12:13:18 lipid panel, serum 2024 025 [facility], [address] [place] [address], [address], 04/01/2025 12:29:30 TSH + free T4, serum 2024 025 [facility], [address] [place] [address], [address], 04/01/2025 12:29:29 iron + TIBC + ferritin, serum 2024 025 [facility], [address] [place] [address], [address], 04/01/2025 12:29:30 vitamin B12 + folate, serum or blood 2024 025 [facility], [address] [place] [address], [address], 04/01/2025 12:29:30 vitamin D, 25-hydrox y, total, serum 2024 025 [facility], [address] [place] [address], [address], 04/01/2025 12:29:30 CMP, serum or plasma 2024 025 [facility], [address] [facility], [place], [address], 04/01/2025 12:29:30 Referral dermatolo gist referral 2024 025 [facility], [address], [address], [place], [address], 04/11/2025 08:46:15 Procedures None recorded. Surgeries None recorded. Imaging MRI, lumbar spine, w/o contrast 2024 025 [facility], [address] [facility], [place], [address], 09/11/2024 08:11:26 Medication Orders Medrol (Ulysses) 4 mg tablets in a dose pack 2024 025 [facility], [address] [place], [address], 04/01/2025 12:03:01 amoxicill in 875 mg tablet 2024 025 [facility], [address] [facility], [place], [address], 04/01/2025 12:01:58 albuterol sulfate HFA 90 mcg/actua tion aerosol inhaler 2024 025 [facility], [address] [place], [address], 10/09/2024 11:41:41 Patient TargetsNo targets recorded. Patient Instructions Encounter Date Encounter Id Patient Instructions Last Modified By Organization Details Last Modified Time 09/10/2024 [id number] learning about high blood sugar Not available 09/10/2024 14:56:53 04/01/2025 [id number] learning about high blood sugar Not available 04/01/2025 12:28:05 actinic keratosis: care instructions Not available 04/01/2025 12:24:12 Reason for Referral Cable Tender Referral for A ctinic keratosis Referring Physician: Rio Elena, Internal Medicine, Encounter Date: 04/01/2025 Results Created Date Observation Date Name Description Value Unit Range Abnormal Flag Note LastModifiedBy Organization Detail LastModifiedTime 09/05/1907/30/2024 XR, lumbo sacra l spine , 2 or 3 view No observ ation record ed. [email or web address] [facility] (Medical Records) [address] [place], [address], 09/06/2024 09:48:09 09/23/19 25 09/11/2024 MRI, lumba r spine , w/o contr ast No observ ation record ed. [facility] (Medical Records) [address] [place], [address], 12/05/2024 22:00:24 12/05/19 25 12/04/2024 CT, chest , w/o contr ast No observ ation record ed. [email or web address] [facility] [address] [facility], [place], [address], 12/06/2024 09:02:54 12/10/19 25 12/03/2024 lung cance r scree km eligi bilit y asses sment * No observ ation record ed. [email or web address] [address], [place], [address], 12/09/2024 21:32:33 02/16/20 25 02/14/2025 US, renal No observ ation [facility] ed. [email or web address] [address] [place], [address], 02/17/2025 09:06:38 Result Notes None recorded. Problems Name Problem SNOMED Code Status Onset Date Resolution Date Notes Provider Name and Address Organization Details Recorded Time Depressiv e disorder 09347666 Active 2017 Ashely ghosh [place] - [facility] 8 08:37:06 Gastroeso phageal reflux disease 783123218 [facility] [place] 8 08:37:20 Insomnia 213192988 [facility] [place] 8 08:37:29 Overdose of antidepre ssant drug 517972349 Active 2019 Rio Elena, DO [address] [place] [address], [address], [facility] 0 08:26:37 COVID-19 167117250 Active 2019 Rio Elena DO [address] [place] [address], [address], [facility] 0 08:27:21 Stricture of esophagus 41695145 Active 2021 Rio Elena DO [address] [place] [address], [address], [facility] 2 14:40:26 Nash's esophagus 458227073 Active 2021 Rio Elena DO [address] [place] [address], [address], [facility] Internal [facility] 2 14:40:39 Paroxysma l atrial fibrillat ion 522156057 Active 2021 Rio Elena DO [address] [place] [address], [address], [facility] 2 14:45:48 Basal cell carcinoma of skin 342114834 Active 2021 Rio Elena DO [address] [place] [address], [address], [facility] 2 14:50:51 Dog bite of hand 722627290 Active 2021 SINTIA DOVE [address] [place] [address], [address], [facility] 2 16:08:28 Tobacco dependenc e syndrome 79972891 Active 2021 SINTIA DOVE [address] [place], [address], [facility] 2 16:08:37 Obesity 651103167 Active 2021 SINTIA DOVE [address] [place], [address], [facility] 2 16:09:11 Pain of right knee joint 757774528983 100 Active 2021 Rio Elena, DO [address] [place] [address], [address], [facility] 2 12:36:04 Postmenop ausal osteopeni a 695398623 Active 2022 Rio Elena, DO [address] [place] [address], [address], [facility] 3 22:59:24 Rib pain 880579792 Active 2022 SINTIA DOVE [address] [place], [address], [facility] 3 12:05:58 Acute bronchiti s 03913221 Active 2022 SINTIA DOVE [address] [place] [address], [address], [facility] 3 10:00:50 Cough 85612121 Active 2022 SINTIA DOVE [address] [place], [address], [facility] 3 13:08:39 Memory impairmen t 964798399 Active 2022 SINTIA DOVE [address] [place] [address], [address], [facility] 3 11:40:33 Pneumonia 569792069 Active 2022 SINTIA DOVE [address] [place] [address], [address], [facility] 3 10:44:23 Hyperglyc emia 77617078 Active 2023 Rio Elena, DO [address] [place] [address], [address], [facility] 4 11:22:52 Bilateral cataracts 99097076 Active 2023 Rio Elena, DO [address] [place] [address], [address], [facility] 4 16:01:38 Acute back pain with sciatica 603743132 Active 2023 SINTIA DOVE [address] [place] [address], [address], [facility] 4 14:29:26 Achilles tendiniti s 80418867 Active 2023 SINTIA DOVE [address] [place] [address], [address], [facility] 4 14:31:50 Achilles tendiniti s 02318393 Active 2023 SINTIA DOVE [address] [place] [address], [address], [facility] 4 14:32:10 Low back pain 633308736 Active 2023 SINTIA DOVE [address] [place] [address], [address], [facility] 4 09:56:35 Weakness of right lower limb Active 2024 Rio Elena, DO [address] [place] [address], [address], [facility] 5 14:53:41 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 905782865123 02 Active 2024 Rio Elena, [address] [place] [address], [address], [facility] 5 20:45:58 Osseous and subluxati on stenosis of lumbar intervert ebral foramina 387152731276 105 Active 2024 Rio Elena, DO [address] [place] [address], [address], [facility] 5 20:46:37 Multiple renal cysts 706005876 Active 2024 Rio Elena DO [address] [place] [address], [address], [facility] 5 20:48:58 Sore throat 896772060 Active 2024 SINTIA DOVE [address] [place] [address], [address], [facility] 5 11:46:16 Referred otalgia of right ear 198752961527 9100 Active 2024 SINTIA DOVE [address] [place] [address], [address], [facility] 5 11:46:25 Osteoarth ritis of left knee joint 071079436589 109 Active 2024 Rio Elena, [address] [place] [address], [address], [facility] 5 13:38:05 Cyst of kidney 613667513 Active 2024 Rio Elena DO [address] [place] [address], [address], [facility] 5 22:00:47 Acute urinary tract infection 659413889 Active 2024 SINTIA DOVE [address] [place] [address], [address], [facility] 5 10:06:10 Actinic keratosis 952804633 Active 2024 Rio Elena DO [address] [place] [address], [address], [facility] 5 12:23:16 Fatigue 62467970 Active 2024 Rio Elena DO [address] [place] [address], [address], [facility] 12:27:15 Poor short-ter m memory 190539989 Active 2024 Rio DupreeGenie Bianchijayden DO [address] [place] [address], [address], [facility] 15:02:09 Problem Notes None recorded. Procedures Surgical History Date Name Laterality Status Provider Name and Address Organization Details Recorded Time 025 Corticosteroid Injection completed Rio DupreeGenie Glen, [address] [place] [address], [address], [facility] 11/04/2024 13:37:53 024 Corticosteroid Injection completed Rio DupreeGenie TashDO jayden [address] [place] [address], [address], [facility] 10/24/2023 12:03:49 022 WOUND CARE completed SINTIA DOEV [address] [place] [address], [address], [facility] 02/09/2022 16:08:10 total hysterectomy with removal of both tubes and ovaries completed Casie Oliveira NP, S [address] [place] [address], [address], [facility] 07/09/2018 12:00:27 Imaging Results None recorded. Procedure Notes None recorded. Medical Equipment None Reported. Allergies No known drug allergies Medications Name Sig Start Date Stop Date Status Note LastModified by Organization Details LastModified Time Prescriptio n - Prior Authorizati on Request active Not Available Not Available N ot Available celecoxib 200 mg capsule Take 1 capsule twice a day by oral route as directed for 30 days. 07/24 completed Not Available Not Available Not Available prednisone 10 mg tablet take 4 tabs x 3 daystake 3 tabs x 3 daystake 2 tabs x 3 daystake 1 tab x 3 days active Not Available Not Available No t Available doxycycline hyclate 100 mg capsule Take 1 capsule twice a day by oral route for 10 days. 09/08 completed Not Available Not Available Not Available cefuroxime axetil 250 mg tablet TAKE 1 TABLET BY MOUTH TWICE DAILY FOR 7 DAYS 11/02 completed Not Available Not Available Not Available donepezil 5 mg tablet Take 1 tablet every day by oral route for 30 days. 05/12 completed Not Available Not Available Not Available trazodone 50 mg tablet Take 1 tablet every day by oral route at bedtime for 30 days. 09/08 completed Not Available Not Available Not Available azithromyci n 250 mg tablet TAKE 2 TABLETS (500 MG) BY ORAL ROUTE ONCE DAILY FOR 1 DAY THEN 1 TABLET (250 MG) BY ORAL ROUTE ONCE DAILY FOR 4 DAYS 05/17 completed Not Available Not Available Not Available donepezil 10 mg tablet 04/01 completed Not Available Not Available Not Available sertraline 100 mg tablet TAKE 1 TABLET BY MOUTH ONCE A DAY 12/01 completed Not Available Not Available Not Available methylpredn isolone 4 mg tablet Take 1 tablet 3 times a day by oral route for 10 days. 07/24 completed Not Available Not Available Not Available galantamine 4 mg tablet Take 1 tablet twice a day by oral route for 30 days. 2024 active Not Available Not Available Not Avai lable topiramate 25 mg tablet TAKE 1 TABLET BY MOUTH EVERY DAY 08/08 completed Not Available Not Available Not Available tramadol 50 mg tablet Take 1 tablet twice a day by oral route as needed for 30 days. active Not Available Not Available No t Available amoxicillin 500 mg tablet 11/26 completed Not Available Not Available Not Available ketorolac 0.5 % eye drops 04/01 completed Not Available Not Available Not Available amoxicillin 875 mg tablet Take 1 tablet every 12 hours by oral route for 10 days. 04/01 completed Not Available Not Available Not Available mirtazapine 30 mg tablet active Not Available Not Available Not Available nicotine 21 mg/24 hr daily transdermal patch Apply 1 patch every day by transderm al route for 42 days. 04/01 completed Not Available Not Available Not Available omeprazole 20 mg capsule,del ayed release TAKE 1 CAPSULE BY MOUTH ONCE DAILY 2024 active Not Available Not Available Not Avai lable hydroxyzine HCl 25 mg tablet take 1 tab up to three times a day as needed for itching. CAUTION CAUSES DROWSINES S 03/31 completed Not Available Not Available Not Available codeine 10 mg-guaifene sin 100 mg/5 mL oral liquid Take 10 mL every 4 hours by oral route as needed for 7 days. 04/01 completed Not Available Not Available Not Available zolpidem 5 mg tablet TAKE 1 TABLET BY MOUTH AT BEDTIME NEEDED 08/10 completed Not Available Not Available Not Available mirtazapine 15 mg tablet Take 1 tablet every day by oral route for 30 days. 08/10 completed Not Available Not Available Not Available levofloxaci n 500 mg tablet Take 1 tablet every 24 hours by oral route for 7 days. 04/01 completed Not Available Not Available Not Available methylpredn isolone 4 mg tablets in a dose pack Take 1 dose pk by oral route as directed for 6 days. 04/01 completed Not Available Not Available Not Available albuterol sulfate HFA 90 mcg/actuati on aerosol inhaler Inhale 2 puffs every 4 hours by inhalatio n route as needed for 30 days. active Not Available Not Available No t Available fluticasone propionate 50 mcg/actuati on nasal spray,suspe nsion 07/10 completed Not Available Not Available Not Available amoxicillin 875 mg-potassiu m clavulanate 125 mg tablet TAKE 1 TABLET BY MOUTH EVERY 12 HOURS FOR 10 DAYS 08/01 completed Not Available Not Available Not Available oxycodone 5 mg tablet Take 1 tablet every 4 hours by oral route as needed for 7 days. 07/24 completed Not Available Not Available Not Available Bactrim DS 800 mg-160 mg tablet Take 1 tablet every 12 hours by oral route as directed for 7 days. 04/09 completed Not Available Not Available Not Available escitalopra m 10 mg tablet TAKE 1 TABLET BY MOUTH EVERY DAY 02/09 completed Not Available Not Available Not Available escitalopra m 20 mg tablet TAKE ONE TABLET BY MOUTH ONCE DAILY 2024 active Not Available Not Available Not Avai lable bupropion HCl XL 300 mg 24 hr tablet, extended release Take 1 tablet every day by oral route for 90 days. 03/31 completed Not Available Not Available Not Available bupropion HCl XL 150 mg 24 hr tablet, extended release 09/24 completed Not Available Not Available Not Available aspirin 1 81 mg tablet qd 08/10 completed Not Available Not Available Not Available Vitamin D3 5000 units qd 08/10 completed Not Available Not Available Not Available krill oil qd 08/10 completed Not Available Not Available Not Available Ozempic 0.25 mg or 0.5 mg (2 mg/1.5 mL) subcutaneou s pen injector INJECT 0.25 MG UNDER THE SKIN EVERY 7 DAYS active Not Available Not Available No t Available Wegovy 0.25 mg/0.5 mL subcutaneou s pen injector Inject 0.5 mL every week by subcutane ous route for 30 days. 09/10 completed Not Available Not Available Not Available Ozempic 0.25 mg or 0.5 mg (2 mg/3 mL) subcutaneou s pen injector active Not Available Not Available Not Available Vitals Date Recorded Body height Body mass index (BMI) Body weight Heart rate Oxygen saturation Oxygen saturation in Arterial blood by Pulse oximetry Systolic And Diastolic Provider Name and Address Organization Details Last Updated DateTime 5 160.02 cm 40.2 kg/m2 709794. 47 g 65 /min 97 % 97 % 140/80 mm[Hg] Maritza Oliveira [facility] 5 14:30:00 Date Recorded Body height Body mass index (BMI) Body weight Oxygen saturation Oxygen saturation in Arterial blood by Pulse oximetry Heart rate Systolic And Diastolic Provider Name and Address Organization Details Last Updated DateTime 5 160.02 cm 34.1 kg/m2 15915.5 3 g 98 % 98 % 73 /min 124/78 mm[Hg] Ama Yen [facility] 5 12:08:39 Date Recorded Body height Body mass index (BMI) Body weight Heart rate Oxygen saturation Oxygen saturation in Arterial blood by Pulse oximetry Systolic And Diastolic Provider Name and Address Organization Details Last Updated DateTime 4 160.02 cm 39.5 kg/m2 114224. 1 g 70 /min 98 % 98 % 128/78 mm[Hg] Rio Elena, DO [address] [place], [address] , [facility] 15:06:57 Social History Question Answer Notes LastModified by Organizat ion Details LastModified Time Tobacco Smoking Status Current Some Day Smoker 10 per day Ama Farshad ghosh, [facility] 04/01/2025 12:03:53 What Was The Date Of Your Most Recent Tobacco Screening? 04/01/2025 [email or web address] Information not available 04/01/2025 How Much Tobacco Do You Smoke? No [email or web address] Information not available 03/14/2023 Sex: Unknown Functional Status Question Answer Note LastModified by Organization D etails LastModified Time Do you or have you ever used any other forms of tobacco or nicotine? No Information not available 11/22/2021 Mental Status None recorded. Family History Nothing Reported. Medical History No medical history recorded. Gynecological HistoryNo gynecological history recorded. Obstetrics History GPAL:G 0 P 0 0 0 0 Immunizations Vaccine Type Date Status Note Provider Nam e and Address Organization Details Recorded Time COVID-19, mRNA, LNP-S, PF, 30 mcg/0.3 mL dose, jade-sucrose 05/13/2021 completed Barbie ghosh [facility] 07/29/2022 08:44:01 COVID-19, mRNA, LNP-S, PF, 30 mcg/0.3 mL dose, jade-sucrose 06/03/2021 completed Barbie ghosh [facility] 07/29/2022 08:44:07 zoster, unspecified formulation 11/13/2020 completed Barbie ghosh [facility] 07/29/2022 08:44:21 Tdap 02/06/2022 completed Barbie ghosh [facility] 07/29/2022 08:44:33 Past Encounters Encounter ID Performer Location Encounter Start Date Encounter Closed Date Diagnosis/Indication Diagnosis SNOMED-CT Code Diagnosis ICD10 Code Diagnosis IMO Codes Diagnosis Note [id number] Rio Elena [facility] [address] [facility],[place] [address] 07/09/2018 11:32:47 07/10/2018 08:29:34 Acute cystitis 01475765 N30.01 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 Screening procedure 2012 5006 Z13.9 Insomnia 849273391 G47.0 0 Gastroesop hageal reflux disease 572280358 K21.9 [id number] Rio Elena [facility] [address] [facility],[place] [address] 02/05/2019 13:42:44 02/05/2019 14:57:21 Depressive disorder 02230919 F32.9 well controlled Gastroesop hageal reflux disease 378505447 K21.9 well controlled Insomnia 499253477 G47.0 0 uses ambien prn uses it maybe 10 times per month Skin lesion 10601725 L98 .9 [id number] Rio Elena [facility] [address] [facility] [address] 06/05/2019 11:18:26 06/05/2019 12:10:15 Pruritic rash 64429919 L28.2 Acute urticaria 90715199 9 L50.9 Insomnia 781782618 G47.0 0 uses ambien prn uses it maybe 10 times per month [id number] Rio Elena [facility] [address] [facility],[place] [address] 09/24/2019 13:46:19 09/24/2019 14:36:43 Depressive disorder 53104142 F32.9 will cont to take the sertraline relates that she is taking the wellbutrin just for cigg cessation states has not helped with depress Memory impairment 120126 006 R41.3 long discussion and we will start a workup and that means start with lab etc and a ct or MRI then we will consider a neuro eval but i belive later talking to her most of her issues are stress and not cadena ving to do with an organic process [id number] Rio Elena [facility] [address] [facility],[place] [address] 03/31/2020 11:25:25 03/31/2020 13:17:29 Paroxysmal atrial fibrillation 743761406 I48.0 will have her set up with a holter monitor and see if we can see it will also have her take ASA everyday in the meantime to help prevent clots Depressive disorder 3548 9007 F32.9 stable per patient on medication Gastroesop hageal reflux disease 672497911 K21.9 stable on medication per patient [id number] Rio Elena [facility] [address] [facility],[place] [address] 06/29/2020 15:09:49 06/29/2020 15:40:46 Depressive disorder 85744739 F32.9 sertraline is not helping her still feels lousy and now she is not able to sleep [place] [id number] Rio Elena [facility] [address] [facility],[place] [address] 08/10/2020 08:28:44 08/10/2020 16:31:04 Sertraline overdose 345953800 T43.221A we will cont to follow and rechk some lab in another week or so pt is feeling weak and tired from virus but has NO suicidal intentions right now and this is confirmed through daughter who is present COVID-19 821491993 U07.1 she is through worst of the infection still has no taste etc will cont to follow [id number] Rio Elena [facility] [address] [facility] [facility] [address] 08/18/2020 08:39:24 08/18/2020 11:09:11 Depressive disorder 34866752 F32.9 sertraline is not helping her still feels lousy and now she is not able to sleep given recent events we will need such input as to the next step COVID-19 096025260 U07.1 she is through worst of the infection still has no taste etc will cont to follow she is still coughing told her to call if any sudden worsening 'will see her in 2 weeks or so Insomnia 891132399 F51.0 9 will cont to work on this she will be staying with daughter which should alleviate some of the stress Overdose o f antidepressant drug 093365811 T43.201D as noted no longer feeling despair or is suicidal [id number] [facility] [address] [facility] [place] [address] 09/08/2020 11:19:02 09/08/2020 15:36:43 Depressive disorder 55696586 F32.9 sertraline is not helping her still feels lousy and now she is not able to sleep given recent events we will need such input as to the next step reviewed all her prior meds and side effects or efficacy decided upon escitalopr am Cough 29376023 R05 given persistanc e of sx we will present her with cefuroxime 250 bid will need to give her samples of anoro 1 puff daily and see if this helps with the cough discussed the fact that she is still smoking and that there is certainly a degree of copd involved in her symptoms and her future prognosis [id number] [facility] [address] [place] [address] 11/02/2020 10:00:22 11/02/2020 11:43:25 Gastroesophageal reflux disease 284459336 K21.9 stable as long as she stays on meds Depressive disorder 3548 9007 F32.9 escitalopr am is helping but is still having an issue with agitation Partial th ickness rotator cuff tear 725117781 M75.102 [id number] [facility] [address] [place] [address] 12/01/2020 10:22:32 12/01/2020 14:06:34 Active or passive immunization 426126717 Z23 finishing the shingles and pneumonia vacc almost got the J&J covid vacc but didnt Adult heal th examination 110210579 Z00.00 doing well overall and is feeling so much better on med we will cont oand order some lab as well as a colonoscop y Vitamin D deficiency 347 59860 E55.9 [id number] [facility] [address] [place] [address] 11/22/2021 14:00:21 11/22/2021 16:12:02 Depressive disorder 81718411 F32.9 escitalopr am is helping and doing well no issues right now Gastroesop hageal reflux disease 756364579 K21.9 stable as long as she stays on medsfollow dr morales Screening mammography 24 117713 Z12.31 Osteopenia 939441166 M85 .88 Paroxysmal atrial fibrillation 097993382 I48.0 asymptomat ic Basal cell carcinoma of skin 264883043 C44.91 10092 [facility] [address] [facility], [place] [address] 02/09/2022 14:59:49 02/09/2022 16:04:12 Dog bite of hand 471628293 S61.452A recheck next mon Tobacco de pendence syndrome 41997347 F17.200 start patchesfu next week Obesity 093457247 E66.9 trial low dose topiramate to start [id number] [facility] [address] [facility], [place] [address] 02/16/2022 08:31:48 02/16/2022 12:12:13 Dog bite of hand 584892957 S61.452A will fu with wound care referral STATbased on appearance will need to be debrided, possible skin graft may be necessary as wellcurren tly taking the augmentin [id number] [facility] [address] [facility], [place] [facility] [place] [address] 08/08/2022 11:34:55 08/08/2022 12:48:03 Depressive disorder 92901259 F32.9 [facility] am is not helping her at all she has stopped on own Gastroesop hageal reflux disease 210050414 K21.9 stable as long as she stays on medsfollow dr morales Paroxysmal atrial fibrillation 091675875 I48.0 asymptomat ic Pain of ri ght knee joint 2109261038 07415 M25.561 worsening pain 13050 [facility] [address] [facility], [place] [address] 03/14/2023 11:26:47 03/14/2023 14:26:17 Active or passive immunization 428628220 Z23 finishing the shingles and pneumonia vacc almost got the J&J covid vacc but didnt Adult heal th examination 805309247 Z00.01 doing well overall and is feeling so much better on med we will cont oand order some lab as well as a colonoscop yrelates that she is having a hard time losing weight and she is very depressed about thisit is affecting her knees and her lungs as she is very sob Paroxysmal atrial fibrillation 980329657 I48.0 asymptomat ic Depressive disorder 3548 9007 F32.9 escitalopr am is not helping her at all she has stopped on own Gastroesop hageal reflux disease 425625167 K21.9 stable as long as she stays on medsfollow dr morales Obesity 638848829 E66.9 l low dose topiramate did not tolerate Screening for osteoporosis 629546903 Z13.820 [id number] [facility] [address] [facility] [address] 05/17/2023 11:04:28 05/17/2023 12:03:01 Depressive disorder 72583429 F32.9 escitalopr am is not helping her at all she has stopped on own Gastroesop hageal reflux disease 893664697 K21.9 stable as long as she stays on medsfollow dr morales Paroxysmal atrial fibrillation 257989015 I48.0 asymptomat ic Tobacco de pendence syndrome 52855374 F17.200 start patchesfu next week Insomnia 754427206 F51.0 9 will cont to work on this she will be staying with daughter which should alleviate some of the stress [id number] [facility] [address] [facility] [address] 07/10/2023 09:16:04 07/10/2023 11:03:10 Pneumonia 825436565 J17 will start on doxycyline for the next 10 dayscan't use prednisone Cough 98453265 R05.1 will set up with cough syrup [id number] [facility] [address] [facility] [address] 09/08/2023 10:10:36 09/08/2023 11:27:39 Paroxysmal atrial fibrillation 144422465 I48.0 asymptomat ic Depressive disorder 3548 9007 F32.9 on mirtazapin e and feeling well Hyperglycemia 93921608 R 73.9 [id number] [facility] [address] [facility], ite [facility] [place] [address] 10/18/2023 15:22:43 10/18/2023 16:51:11 Depressive disorder 75295037 F32.9 on mirtazapin e and feeling well Obesity 412148176 E66.9 l low dose topiramate did not tolerateha ve not been able to get ozempic Paroxysmal atrial fibrillation 892926515 I48.0 asymptomat ic and no cp no sob Tobacco de pendence syndrome 26207610 F17.200 start patchesfu next week Nash's esophagus 3029 35031 K22.70 still has occ heartburn on omeprazole [id number] [facility] [address] [facility], [facility] [place] [address] 10/24/2023 11:29:50 10/24/2023 12:20:08 Pain of right knee joint 0934412718 09434 M25.561 worsening pain tolera luke inj [id number] [facility] [address] [facility], [place] [address] 06/05/2024 13:57:42 06/05/2024 16:52:58 Acute back pain with sciatica 682618671 M54.41 no pred, will try low dose medrol and will set up tramadol Achilles tendinitis 1165 4001 M76.62 medrol should help as well with the inflammati on [id number] [facility] [address] [facility], ite [facility] [place] [address] 07/24/2024 14:24:52 07/24/2024 15:42:57 Pre-surgery evaluation 974462767 Z01.818 per 2019 ACC cardiac risk profile this patient is deemed a low risk for the proposed insurancep atient understand s to take her usual medication s on the morning of the procedure Depression screening 171 077987 Z13.31 neg [id number] [facility] [address] [facility],[place] [address] 09/10/2024 14:23:36 09/10/2024 15:34:49 Hyperglycemia 14069169 R73.9 will follow and will keep stable Weakness o f right lower limb 2811369437 68415 M62.81 noted paresis along with significan t back pain saloni when lying down in bed attempting tomove etc walking any distance causes the pain to come on [id number] [facility] [address] [facility],[place] [address] 10/09/2024 09:14:08 10/09/2024 11:55:07 Acute bronchitis 36397975 J20.8 start on medrol and amox with as needed albuterol inhaler Sore throat 989266580 J0 2.8 Referred o talgia of right ear 2782883037 225859 H92.01 [id number] [facility] [address] [facility],[place] [address] 11/04/2024 09:16:28 11/04/2024 13:45:42 Osteoarthritis of left knee joint 4768776362 98715 M17.12 luke inj well lynette [id number] [facility] [address] [facility],[place] [facility] [employer] [facility] [place] [address] 04/01/2025 11:55:13 04/01/2025 13:49:50 Depression screening 030677662 Z13.31 neg Actinic keratosis 007 L57.0 28713 Hyperglycemia 76698523 R 73.9 will follow and will keep stable Fatigue 85330106 R53.82 861243 Health Concerns Section Related Observation LastModified by Organization Detai ls LastModified Time None Recorded Concern Status LastModified by Organization Details LastModified Time None Recorded Advance Directives Directive None Recorded Payers Insurance Date Sequence Insurance Name Policy Number Policy Grier Covered Member ID Grier Member ID Guarantor Name 06/05/2024 1 [id number] Carmen Hogan [id number] Balbina Cournoyer 03/29/2025 1 [place] [employer] Balbina Velzo Cournoyer [id number] Balbina Cournoyer 06/05/2024 2 [id number] [id number] Balbina Cournoyer [id number] Balbina Cournoyer 03/29/2025 2 [place] [id number] Balbina Cournoyer [id number] Balbina Cournoyer Notes Date Note Type Note Provider Name a nd Address Organization Details Recorded Time 4 text/html Pre-OpReported by PatientHPIFor risk factors, patient reportsno cognitive impairment,no functional impairment,no malnutrition,no frailty,able to climb a flight of stairs (exercise capacity>4 mets),no obstructive sleep apnea,non-smoker,no alcohol misuse,no illicit drug use,no chronic cardiopulmonary condition, andnot obese. For anesthesia hx, patient reportsno hx of anesthesia complications,no allergy to anesthetic agents, andno family history of anesthesia complications. For functional ability, patient reportsable to walk up stairs,able to perform heavy work around the house,no difficulty walking up hills, andable to walk 4 mph.having a lot of back pain as of late here for pre op cataract surgery eval . no recent illnesses or injuries Rio Elena DO [address] [place] [address], [phone], [facility] 07/24/2024 15:38:20 5 text/html ROS as noted in the HPI here for rechk and is doing wellcataract surgery was successful and goodback has been a big problem and keeps her awake all night Rio Elena DO [address] [place] [address], [phone], [facility] 09/10/2024 15:22:18 5 text/html ROS as noted in the HPI c/o uri The patient is participating in this appointment via telemedicine communication with a phone call/video calling service (Doxy)The patient consents to use of these platforms in place of an in-person appointment due to either sick symptoms the patient is presenting with or current office closure due to COVID exposure in order to keep our office staff and patients safe The patient presents to the office today with concerns of sick symptoms including cough, sob, wheezing, chest tightness and rib pain denies fever, chills does have headache The symptoms started originally a few days agoThe patient reports exposure to friends and famThe patient symptoms mainly involves the cough, rib pain and chest tightness Pertinent comorbidities include age, hx of bronchitis The patient symptoms are alleviated by n/aThe patient symptoms are exacerbated by talking and activity The patient has tested for COVID-19 and the results was not done, pt says she is too sick to leave the house declined CXR due to this, did recommend she get one done if she doesn't improve SINTIA DOVE [address] [place] [address], [phone], [facility] 10/09/2024 11:47:05 5 text/html ROS as noted in the HPI here for right knee luke inj since pain has started worseninghurts to walk etc climb stairs Rio Elena DO [address] [place] [address], [phone], [facility] 11/04/2024 13:39:12 5 text/html ROS as noted in the HPI has had a spot on her left cheek for 7 mo daughter worried that it has changed Rio Elena DO [address] [place], [address], [facility] 04/01/2025 12:29:01 OBGyn Episode No OBEpisode recorded.
== END 2025-06-16 08:00 | disposition home or self-care (01) ==
LOC: HO.MRI 07:59
PROVIDERS: PCP Internal Medicine; Visit Provider Internal Medicine
DX: R41.3 Other amnesia (principal)
CPT/HCPCS: 70551